=== PATIENT | male | born 1945 | race Caucasian/White ===

== ENCOUNTER 2019-11-06 14:29 | Emergency (ER) | payer MEDICARE ==
[~2019-11-06] VITALS: Ht 177.8 cm; Wt 127.0 kg
--- NOTE | 2019-11-06 14:35 | NUR ---
BIB [facility] FROM PRIMARY CARE FOR AFIB W/ RVR. [facility] REPORTS HR UP TO 170. VS STABLE. NADN. PT DENIES SOB OR CP. PT REPORTS RECENT ECHOCARDIOGRAM. PT CURRENTLY ON HALTER MONITOR THROUGH PORTABLE SAWMILL OPERATOR. PT IS RESTING ON [employer] W/ CALL LIGHT IN REACH. DENIES FURTHER NEEDS AT THIS TIME.
[2019-11-06] MEDS ORDERED: SODIUM CHLORIDE FLUSH 10ML SYR IVF ONE ×2 (15:00)
[2019-11-06 15:01] LABS: BASOPHILS # (AUTO) 0.06 x10^3/uL (0-0.1); BASOPHILS % (AUTO) 1 % (0-1); EOSINOPHILS # (AUTO) 0.18 x10^3/uL (0-0.4); EOSINOPHILS % (AUTO) 2 % (1-7); LYMPHOCYTES # (AUTO) 1.96 x10^3/uL (1-3.4); LYMPHOCYTES % (AUTO) 26 % (22-44); MD NO; MEAN CORPUSCULAR HEMOGLOBIN 31.3 pg (27.5-34.5); MEAN CORPUSCULAR HGB CONC 32.6 g/dL (33.2-36.2); MEAN CORPUSCULAR VOLUME 96.1 fL (81-97); MEAN PLATELET VOLUME 8.6 fL (7.4-10.4); MONOCYTES # (AUTO) 0.62 x10^3/uL (0.2-0.8); MONOCYTES % (AUTO) 8 % (2-9); NEUTROPHILS # (AUTO) 4.78 x10^3/uL (1.8-6.8); NEUTROPHILS % (AUTO) 63 % (42-75); PLATELET COUNT 220 x10^3/uL (130-400); RED BLOOD COUNT 5.13 x10^6/uL (4.38-5.82); RED CELL DISTRIBUTION WIDTH 16.7 % (9.4-14.8)
--- NOTE | 2019-11-06 15:10 | NUR ---
REPEAT EKG COMPLETED AND GIVEN TO PROVIDER. PT RESTING ON SUDEEP W/ CALL LIGHT IN REACH.
[2019-11-06 15:13] LABS: ALANINE AMINOTRANSFERASE 20 U/L (12-78); ALBUMIN 3.3 g/dL (3.4-5.0); ANION GAP 5 mmol/L (5-15); CALCIUM 8.3 mg/dL (8.5-10.1); CHLORIDE 109 mmol/L (98-107); CREATININE 1.07 mg/dL (0.7-1.3)
[2019-11-06 15:17] LABS: ALKALINE PHOSPHATASE 95 U/L (45-117); BILIRUBIN,TOTAL 0.4 mg/dL (0.2-1.0); TOTAL PROTEIN 6.7 g/dL (6.4-8.2); TROPONIN I < 0.015 ng/mL (0.000-0.045)
[2019-11-06 15:23] LABS: T4 (THYROXINE) 4.6 mcg/dL (4.5-12.1)
--- NOTE | 2019-11-06 15:27 | NUR ---
BIB [facility] FROM PRIMARY [facility]ARE FOR AFIB W/ RVR. [facility] REPORTS HR UP TO 170. VS STABLE. NADN. PT DENIES SOB OR CP. PT REPORTS RECENT ECHOCARDIOGRAM. PT CURRENTLY ON HALTER MONITOR THROUGH GYN PHYSICIAN. PT IS RESTING ON [employer] ([employer]) W/ CALL LIGHT IN REACH. DENIES FURTHER NEEDS AT THIS TIME.
[2019-11-06 15:37] LABS: INTERNATIONAL NORMALIZED RATIO 1.31 (0.93-1.1); PROTHROMBIN TIME 13.9 Seconds (9.6-11.5)
--- NOTE | 2019-11-06 15:52 | NUR ---
ALL TESETS RESULTED. PT IS UP FOR RECHECK.
--- NOTE | 2019-11-06 16:46 | NUR ---
MD TO BEDSIDE TO UPDATE PT ON POC. PT TO BE DCd HOME. VSS. AWAITING PAPERWORK AT THIS TIME
[2019-11-06 16:47] VITALS: BP 117/81
== END 2019-11-06 17:03 | disposition home or self-care (01) ==
LOC: ED 17:00
DX: R00.2 Palpitations (principal); I10 Essential (primary) hypertension; Z86.718 Personal history of other venous thrombosis and embolism
CPT/HCPCS: 36415; 71045; 80053; 83880; 84436; 84443; 84484; 85025; 85610; 85730; 93005; 99284